=== PATIENT | male | born 1970 | race African-American/Black ===

== ENCOUNTER 2019-08-26 10:28 | Observation (INO) | payer BC ==
--- OUTSIDE RECORDS SUMMARY | 2019-08-26 10:30 | XMS REPORT ---
:1970 [facility] Organization [facility] Address [address] [place] [address] [place] [id number] Care Team Providers Name Role Phone Unavailable Unavailable Unavailable Problems This patient has no known problems. Allergies, Adverse Reactions, Alerts This patient has no known allergies or adverse reactions. Medications This patient has no known medications.
[2019-08-26 11:54] LABS: Absolute Lymphocytes (CBC) 1.7 K/uL (0.7-4.9); Basophils % 0.7 % (0-1.3); Hematocrit 25.8 % (39.6-49.0); Lymphocytes % 9.4 % (15.3-44.8); MPV 7.1 fL (7.6-11.3); RBC Red Blood Cell Count 3.71 M/uL (4.33-5.43)
[2019-08-26 12:04] LABS: Protime INR 1.16
--- NOTE | 2019-08-26 12:05 | RAD REPORT ---
EXAM DESCRIPTION: Olga Lidia Single View08/26/2019 11:55 am CLINICAL HISTORY: Cough COMPARISON: July 30, 2019 FINDINGS: The right hemithorax is hazy. Most if not all this represents a combination of right pleu ral based masses and pleural effusion. Left lung appears clear of acute infiltrate. Heart is normal size. Mediastinal and right hilar lympha denopathy is present
[2019-08-26] MEDS ORDERED: NA CHLORIDE 0.9% 1,000 ML ONE ×2 (12:11→18:24)
[2019-08-26 12:20] LABS: ALT/SGPT 18 U/L (12-78); AST/SGOT 26 U/L (15-37); Albumin 2.9 g/dL (3.4-5.0); Alkaline Phosphatase 152 U/L (45-117); BUN Blood Urea Nitrogen 18 mg/dL (7-18); Bicarbonate 27 mmol/L (21-32); Bilirubin Direct < 0.1 mg/dL (0-0.2); Bilirubin Total 0.1 mg/dL (0.2-1.0); Glucose Level 87 mg/dL (74-106); Magnesium 2.3 mg/dL (1.8-2.4); NT PRO-BNP 65 pg/mL (<125); Potassium 3.9 mmol/L (3.5-5.1); Protein, Total 8.3 g/dL (6.4-8.2); Sodium Level 137 mmol/L (136-145); Troponin (Emerg Dept Use Only) < 0.02 ng/mL (0.0-0.045)
--- NOTE | 2019-08-26 12:47 | EKG ---
Test Date: 2019-08-26 Test Time: 11:20:47 Senior Loan Processor: ANAMARIA MEASUREMENT RESULTS: Intervals: Rate: 110 RI: 148 QRSD: 76 QT: 316 QTc: 427 [place]: P: 47 RI: 148 QRS: 39 T: 42 INTERPRETIVE STATEMENTS: Sinus tachycardia Otherwise normal ECG No previous ECG available for comparison Electronically Signed On 08-26-19 12:46:53 [employer]IST BL[employer] by Km Love
[2019-08-26] MEDS ORDERED: PIPER/TAZO/NS 3.375gm 3.375 GM/100 ML BAG ONE (12:50)
--- NOTE | 2019-08-26 13:10 | RAD REPORT ---
EXAM DESCRIPTION: RAD - Pelvis - 08/26/2019 1:04 pm CLINICAL HISTORY: Left hip pain FINDINGS: No fracture or dislocation is seen. Mild superolateral hip joint space narrowing with subchondral sclerosis.
--- NOTE | 2019-08-26 13:10 | RAD REPORT ---
EXAM DESCRIPTION: RAD - Hip Left 2 View - 08/26/2019 1:04 pm CLINICAL HISTORY: Left hip pain FINDINGS: No fracture or dislocation is seen. Mild superolateral hip joint space narrowing with subchondral sclerosis
--- NOTE | 2019-08-26 13:11 | RAD REPORT ---
EXAM DESCRIPTION: RAD - Femur Left - 08/26/2019 1:04 pm CLINICAL HISTORY: Left leg pain FINDINGS: No fracture seen. No bony lesion noted
[2019-08-26 13:22] LABS: Anisocytosis 1+; Blood Morphology Comment NOTED (NOT SEEN); Platelet Estimate INCR; Urine White Blood Cell Casts OK
--- NOTE | 2019-08-26 13:28 | ER ---
Nurse's Notes 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 Transition of care: patient was not received from another setting of care. Onset of symptoms was August 26, 2019. Risk Assessment: Do you want to hurt yourself or someone else? Patient reports no desire to harm self or others. Initial Sepsis Screen: Does the patient meet any 2 criteria? No. Patient's initial sepsis screen is negative. Does the patient have a suspected source of infection? No. Patient's initial sepsis screen is negative. Care prior to arrival: None. 10:35 Method Of Arrival: Ambulatory iw 10:35 Acuity: TADEO 3 iw Historical: - Allergies: 10:38 NKA; iw - Home Meds: 10:38 None [Active]; iw - PMHx: 10:38 throat cancer; lung cancer; iw - PSHx: 10:38 left leg; iw - Immunization history:: Adult Immunizations. - Coronavirus screen:: The patient has NOT traveled to [place], [place], or [place] in the past 14 days. Proceed with normal triage process as indicated. - Social history:: Smoking status: Patient reports the use of cigarette tobacco products, smokes one pack cigarettes per day. - Family history:: not pertinent. - Ebola Screening: : Patient negative for fever greater than or equal to 101.5 degrees Fahrenheit, and additional compatible Ebola Virus Disease symptoms Patient denies exposure to infectious person Patient denies travel to an Ebola-affected area in the 21 days before illness onset No symptoms or risks identified at this time. Screenin:31 Abuse screen: Denies threats or abuse. Nutritional screening: No deficits noted. Tuberculosis screening: No symptoms or risk factors identified. Fall Risk None identified. Assessment: 12:21 General: Appears in no apparent distress. comfortable, Behavior is calm, cooperative. Pain: Complains of pain in left inguinal area Pain does not radiate. Pain currently is 3 out of 10 on a pain scale. Quality of pain is described as throbbing, Pain began 1 day ago. Alleviated by medications, rest, Aggravated by repositioning. Neuro: Level of Consciousness is awake, alert, obeys commands, Oriented to person, place, time, situation, Solution Mixer are equal bilaterally Moves all extremities. Full function Speech is normal. Cardiovascular: Heart tones S1 S2 present Capillary refill < 3 seconds Patient's skin is warm and dry. Pulses are 2+ in right radial artery, right dorsalis pedis artery, left radial artery and left dorsalis pedis artery. Respiratory: Airway is patent Breath sounds with wheezes in right posterior upper lobe the patient has mild shortness of breath. GI: Last BM was August 25, 2019. Bowel sounds present X 4 quads. Abd is soft and non tender Patient currently denies nausea. : No signs and/or symptoms were reported regarding the genitourinary system. Derm: Skin is dry, Skin is pink, warm \T\ dry. Skin temperature is warm. Musculoskeletal: No deficits noted. 13:45 Reassessment: Patient appears in no apparent distress at this time. Pt lying in bed ah resting with eyes closed and resp cedrick and unlabored. Brought Pt a sandwich and chips. No other needs voiced at this time. 14:22 Reassessment: Spoke with Dr Michele regarding admission orders, stated she is in sv putting them at this time. 17:36 Reassessment: Patient appears in no apparent distress at this time. 17:36 Reassessment: Tray delievered to patient. No needs voiced at this time. 19:50 Reassessment: Report called to YE christopher. Patient to be taken to room 216. ao Vital Signs: 10:38 BP 120 / 85; Pulse 123; Resp 16 S; Temp 97.3; Pulse Ox 100% on R/A; Weight 63.96 kg; iw Height 6 ft. 0 in. (182.88 cm); Pain 10/10; 12:26 BP 118 / 94; Pulse 104; Resp 18; Pulse Ox 100% on R/A; sv 14:52 BP 116 / 73; Pulse 108; Resp 16; Pulse Ox 100% ; sv 16:02 BP 107 / 70; Pulse 106; Resp 16; Pulse Ox 99% ; sv 16:45 BP 95 / 70; Pulse 103; Resp 16; Pulse Ox 99% ; sv 17:30 BP 104 / 72; Pulse 101; Pulse Ox 98% ; sv 19:00 BP 109 / 84; Pulse 108; Resp 18; Pulse Ox 99% on R/A; rv 20:00 BP 107 / 76; Pulse 108; Resp 18; Pulse Ox 99% on R/A; rv 20:32 BP 113 / 81; Pulse 105; Resp 16; Pulse Ox 99% on R/A; rv 10:38 Body Mass Index 19.12 (63.96 kg, 182.88 cm) iw ED Course: 10:31 Patient arrived in ED. as 10:37 Triage completed. iw 10:38 Arm band placed on. iw 10:40 Bry Xiao MD is Attending Physician. janelle 11:30 EKG done, by water resources technical officer. reviewed by Bry Xiao MD. at1 11:45 Patient has correct armband on for positive identification. Bed in low position. Call light in reach. Pulse ox on. NIBP on. Door closed. Warm blanket given. Head of bed elevated. 11:50 First set of blood cultures drawn by me. Inserted saline lock: 22 gauge in left sv forearm, using aseptic technique. ,using aseptic technique. diffusics Blood collected. Flushed left forearm with 5 ml normal saline. 11:53 XRAY Chest (1 view) In Process Unspecified. EDMS 11:53 Missed attempt(s): 22 gauge in right forearm. Bleeding controlled, band aid applied, catheter tip intact. 12:01 Second set of blood cultures drawn by me. 12:07 Sendy Nicole, RN is Primary Nurse. sv 12:35 ED physician to see patient. ah 12:49 Patient moved to radiology. sv 13:02 Pelvis XRAY In Process Unspecified. EDMS 13:02 Hip Left 2 View XRAY In Process Unspecified. EDMS 13:02 Femur Left XRAY In Process Unspecified. EDMS 13:15 T\T\S collected, blood band applied to patient. sv 13:24 Cesar Saldana MD is Hospitalizing Provider. janelle 14:15 No provider procedures requiring assistance completed. ah 14:52 Awaiting bed assignment. sv 16:30 Awaiting bed assignment. ah 17:37 Awaiting bed assignment. 19:08 Primary Nurse role handed off by Sendy Nicole RN 19:08 Report given to Jelani RN and Pino RN. sv 20:31 Khris Damian, RN is Primary Nurse. rv 20:32 Patient admitted, IV remains in place. ao Administered Medications: 12:15 Drug: NS 0.9% 1000 ml Route: IV; Rate: 1 bolus; Site: left forearm; ah 15:26 Follow up: Response: No adverse reaction; IV Status: Completed infusion; IV Intake: ah 1000ml 13:31 Drug: Zosyn 3.375 grams Route: IVPB; Infused Over: 60 mins; Site: left forearm; sv 15:24 Follow up: Response: No adverse reaction; IV Status: Completed infusion; IV Intake: ah 100ml Intake: 15:24 IV: 100ml; Total: 100ml. 15:26 IV: 1000ml; Total: 1100ml. Outcome: 13:27 Decision to Hospitalize by Provider. janelle 18:28 Admitted to ER Hold. Please see [facility] for further documentation. 18:28 Condition: stable 18:28 Instructed on the need for admit. 20:32 Patient left the ED. ao Signatures: Dispatcher [employer] EDMS Sendy Nicole, RN Bry Patterson MD MD cha Martinez, Amelia as Williams, Irene, YE BELCHER Katarzyna Malloy, quiller hand EKG Tat1 Jelani Rubio RN RN ao Vicente, Ronaldo, RN RN rv Harris, Amy RN YE
--- NOTE | 2019-08-26 13:28 | EDPHYS ---
Physician Documentation [facility] Name: Artur Kimble Age: 49 yrs Sex: Male : 1970 Arrival Date: 08/26/2019 Time: 10:31 Bed 7 Private MD: DERICK Physician Bry Xiao HPI: 08/26 12:40 This 49 yrs old Black Male presents to ER via Ambulatory with complaints of Abnormal janelle Lab Results, Leg Pain. 12:40 The patient presents with decreased range of motion, pain, that is acute. The janelle complaints affect the left hip, left gluteal fold and left upper thigh. Context: The problem was sustained at an unknown site. Onset: The symptoms/episode began/occurred 1 week(s) ago. Modifying factors: The symptoms are alleviated by elevating leg, remaining still, the symptoms are aggravated by movement, weight bearing. Associated signs and symptoms: The patient has no apparent associated signs or symptoms. Treatment prior to arrival includes: no previous treatment. Severity of symptoms: At their worst the symptoms were moderate, in the emergency department the symptoms are unchanged. The patient has not experienced similar symptoms in the past. Historical: - Allergies: 10:38 NKA; iw - Home Meds: 10:38 None [Active]; iw - PMHx: 10:38 throat cancer; lung cancer; iw - PSHx: 10:38 left leg; iw - Immunization history:: Adult Immunizations. - Coronavirus screen:: The patient has NOT traveled to [place], [place], or [place] in the past 14 days. Proceed with normal triage process as indicated. - Social history:: Smoking status: Patient reports the use of cigarette tobacco products, smokes one pack cigarettes per day. - Family history:: not pertinent. - Ebola Screening: : Patient negative for fever greater than or equal to 101.5 degrees Fahrenheit, and additional compatible Ebola Virus Disease symptoms Patient denies exposure to infectious person Patient denies travel to an Ebola-affected area in the 21 days before illness onset No symptoms or risks identified at this time. ROS: 12:40 Constitutional: Negative for fever, chills, and weight loss, Eyes: Negative for injury, janelle pain, redness, and discharge, ENT: Negative for injury, pain, and discharge, Neck: Negative for injury, pain, and swelling, Cardiovascular: Negative for chest pain, palpitations, and edema, Abdomen/GI: Negative for abdominal pain, nausea, vomiting, diarrhea, and constipation, Back: Negative for injury and pain, : Negative for injury, bleeding, discharge, and swelling, Skin: Negative for injury, rash, and discoloration, Neuro: Negative for headache, weakness, numbness, tingling, and seizure, Psych: Negative for depression, anxiety, suicide ideation, homicidal ideation, and hallucinations, Allergy/Immunology: Negative for hives, rash, and allergies, Endocrine: Negative for neck swelling, polydipsia, polyuria, polyphagia, and marked weight changes, Hematologic/Lymphatic: Negative for swollen nodes, abnormal bleeding, and unusual bruising. 12:40 Respiratory: Positive for cough. 12:40 MS/extremity: Positive for decreased range of motion, pain, tenderness, of the left femoral area, left hip and left leg. Exam: 12:40 Constitutional: This is a well developed, well nourished patient who is awake, alert, janelle and in no acute distress. Head/Face: Normocephalic, atraumatic. Eyes: Pupils equal round and reactive to light, extra-ocular motions intact. Lids and lashes normal. Conjunctiva and sclera are non-icteric and not injected. Cornea within normal limits. Periorbital areas with no swelling, redness, or edema. ENT: Nares patent. No nasal discharge, no septal abnormalities noted. Tympanic membranes are normal and external auditory canals are clear. Oropharynx with no redness, swelling, or masses, exudates, or evidence of obstruction, uvula midline. Mucous membranes moist. Neck: Trachea midline, no thyromegaly or masses palpated, and no cervical lymphadenopathy. Supple, full range of motion without nuchal rigidity, or vertebral point tenderness. No Meningismus. Chest/axilla: Normal chest wall appearance and motion. Nontender with no deformity. No lesions are appreciated. Vital Signs: 10:38 BP 120 / 85; Pulse 123; Resp 16 S; Temp 97.3; Pulse Ox 100% on R/A; Weight 63.96 kg; iw Height 6 ft. 0 in. (182.88 cm); Pain 10/10; 12:26 BP 118 / 94; Pulse 104; Resp 18; Pulse Ox 100% on R/A; sv 14:52 BP 116 / 73; Pulse 108; Resp 16; Pulse Ox 100% ; sv 16:02 BP 107 / 70; Pulse 106; Resp 16; Pulse Ox 99% ; sv 16:45 BP 95 / 70; Pulse 103; Resp 16; Pulse Ox 99% ; sv 17:30 BP 104 / 72; Pulse 101; Pulse Ox 98% ; sv 19:00 BP 109 / 84; Pulse 108; Resp 18; Pulse Ox 99% on R/A; rv 20:00 BP 107 / 76; Pulse 108; Resp 18; Pulse Ox 99% on R/A; rv 20:32 BP 113 / 81; Pulse 105; Resp 16; Pulse Ox 99% on R/A; rv 10:38 Body Mass Index 19.12 (63.96 kg, 182.88 cm) iw MDM: 10:40 Patient medically screened. [facility] 08/26 11:09 Order name: Basic Metabolic Panel [facility] 08/26 11:09 Order name: CBC with Diff; Complete Time: 13:23 [facility] 08/26 11:09 Order name: LFT's [facility] 08/26 11:09 Order name: Magnesium [facility] 08/26 11:09 Order name: NT PRO-BNP [facility] 08/26 11:09 Order name: PT-INR; Complete Time: 12:38 [facility] 08/26 11:09 Order name: Troponin (emerg Dept Use Only) [facility] 08/26 11:09 Order name: Blood Culture Adult (2) [facility] 08/26 11:09 Order name: Procalcitonin; Complete Time: 12:38 [facility] 08/26 11:09 Order name: Lactate; Complete Time: 12:38 [facility] 08/26 11:09 Order name: Urine Culture [facility] 08/26 12:39 Order name: Type And Screen [facility] 08/26 13:22 Order name: CBC Smear Scan; Complete Time: 13:23 [facility] 08/26 14:16 Order name: ABO/RH no charge [facility] 08/26 11:09 Order name: XRAY Chest (1 view); Complete Time: 12:38 [facility] 08/26 12:38 Order name: Pelvis XRAY; Complete Time: 13:23 [facility] 08/26 14:28 Order name: Lipid Profile [facility] 08/26 14:28 Order name: Lipid Profile [facility] 08/26 14:28 Order name: Urinalysis [facility] 08/26 14:40 Order name: Basic Metabolic Panel [facility] 08/26 14:40 Order name: Basic Metabolic Panel [facility] 08/26 14:40 Order name: Basic Metabolic Panel [facility] 08/26 14:40 Order name: Basic Metabolic Panel [facility] 08/26 14:40 Order name: CBC with Automated Diff [facility] 08/26 14:40 Order name: CBC with Automated Diff [facility] 08/26 14:40 Order name: CBC with Automated Diff [facility] 08/26 14:41 Order name: CBC with Automated Diff EDMS 08/26 14:41 Order name: CBC with Automated Diff [facility] 08/26 11:09 Order name: EKG; Complete Time: 11:10 [facility] 08/26 11:09 Order name: EKG - Nurse/Tech; Complete Time: 12:09 [facility] 08/26 11:09 Order name: IV Saline Lock; Complete Time: 12:09 [facility] 08/26 11:09 Order name: Labs collected and sent; Complete Time: 12:09 [facility] 08/26 11:09 Order name: O2 Per Protocol; Complete Time: 12:09 [facility] 08/26 11:09 Order name: O2 Sat Monitoring; Complete Time: 12:09 [facility] 08/26 12:38 Order name: Hip Left 2 View XRAY; Complete Time: 13:23 [facility] 08/26 12:38 Order name: Femur Left XRAY; Complete Time: 13:23 [facility] 08/26 14:28 Order name: CONS Pharmacy Consult [facility] 08/26 14:28 Order name: Regular EDKY Administered Medications: 12:15 Drug: NS 0.9% 1000 ml Route: IV; Rate: 1 bolus; Site: left forearm; ah 15:26 Follow up: Response: No adverse reaction; IV Status: Completed infusion; IV Intake: ah 1000ml 13:31 Drug: Zosyn 3.375 grams Route: IVPB; Infused Over: 60 mins; Site: left forearm; sv 15:24 Follow up: Response: No adverse reaction; IV Status: Completed infusion; IV Intake: ah 100ml Disposition: 08/26/19 13:27 Hospitalization ordered by Cesar Saldana for Inpatient Admission. Preliminary diagnosis are Elevated white blood cell count, Anemia, unspecified, Carcinoma in situ of right bronchus and lung - pneumonitis, Tobacco abuse counseling, Tobacco use. - Bed requested for Telemetry/MedSurg (Inpatient). - Status is Inpatient Admission. ao - Condition is Fair. - Problem is new. - Symptoms have improved. UTI on Admission? No Signatures: Dispatcher [employer] EDKY Purvi Calix Sendy Nicole, RN RN Bry Prieto MD MD cha Williams, Irene, Jelani Pablo RN, RN Elissa Mendez RN YE Corrections: (The following items were deleted from the chart) 14:40 14:28 CBC with Automated Diff ordered. EDKY EDMS 14:40 14:28 Comprehensive Metabolic Panel ordered. EDKY EDMS 17:56 13:27 Hospitalization Ordered by Cesar Saldana MD for Inpatient Admission. Preliminary bd diagnosis is Elevated white blood cell count; Anemia, unspecified; Carcinoma in situ of right bronchus and lung - pneumonitis; Tobacco abuse counseling; Tobacco use. Bed requested for Telemetry/MedSurg (Inpatient). Status is Inpatient Admission. Condition is Fair. Problem is new. Symptoms have improved. UTI on Admission? No. janelle 18:48 17:56 08/26/2019 13:27 Hospitalization Ordered by Cesar Saldana MD for Inpatient bd Admission. Preliminary diagnosis is Elevated white blood cell count; Anemia, unspecified; Carcinoma in situ of right bronchus and lung - pneumonitis; Tobacco abuse counseling; Tobacco use. Bed requested for [email or web address] ER HOLD. Status is Inpatient Admission. Condition is Fair. Problem is new. Symptoms have improved. UTI on Admission? No. bd 20:32 18:48 08/26/2019 13:27 Hospitalization Ordered by Cesar Saldana MD for Inpatient ao Admission. Preliminary diagnosis is Elevated white blood cell count; Anemia, unspecified; Carcinoma in situ of right bronchus and lung - pneumonitis; Tobacco abuse counseling; Tobacco use. Bed requested for Telemetry/MedSurg (Inpatient). Status is Inpatient Admission. Condition is Fair. Problem is new. Symptoms have improved. UTI on Admission? No. bd
--- NOTE | 2019-08-26 14:19 | P.HP ---
Certification for Inpatient Patient admitted to: Observation Practitioner: I am a practitioner with admitting privileges, knowledge of patient current condition, hospital course, and medical plan of care. Services: Services provided to patient in accordance with Admission requirements found in Title 42 Section 412.3 of the Code of Federal Regulations Patient History Date of Service: 08/26/19 Reason for admission: Referred for leukocytosis History of Present Illness: Mr. Kimble is 49 y/o old male with a history of thyroid cancer status post chemoradiation in 2017. Patient was following up with his oncologist, was found to have R apical lung mass suggestive of malignancy. He was planned for a placement of port a cath on Saturday08/28/19 however blood work showed leukocytosis. Patient was at his oncologist's office today and referred to the emergency room due to leukocytosis to rule out acute infection. His only complaint is urinary urgency that been ongoing for 2-3 months. He denies any fevers , chills, cough, night sweats, unintentional weight loss or GI symptoms. Patient also has a left hip pain that started 1 week ago. He denies any trauma to the area prior to onset of pain. Allergies No Known Allergies Allergy (Verified 08/25/19 09:21) Home Medications: Ibuprofen [Advil] 200 mg PO PRN PRN 08/25/19 - Past Medical/Surgical History -: Throat cancer -: Lung ca -: LLE Ortho - Family History Family History: Reviewed- Non-Contributory - Social History Smoking Status: Current every day smoker Alcohol use: No CD- Drugs: No Review of Systems 10-point ROS is otherwise unremarkable Genitourinary: Urgency Musculoskeletal: Other (L hip pain) Physical Examination - Physical Exam General: Alert, In no apparent distress HEENT: Atraumatic, PERRLA, Mucous membr. moist/pink, EOMI, Sclerae nonicteric Neck: Supple, 2+ carotid pulse no bruit, No LAD, Without JVD or thyroid abnormality Respiratory: Clear to auscultation bilaterally, Normal air movement Cardiovascular: Regular rate/rhythm, Normal S1 S2 Gastrointestinal: Normal bowel sounds, No tenderness Musculoskeletal: No tenderness Integumentary: No rashes Neurological: Normal gait, Normal speech, Normal strength at 5/5 x4 extr, Normal tone, Normal affect Lymphatics: No axilla or inguinal lymphadenopathy - Studies Laboratory Data (last 24 hrs) 08/26/19 11:40: PT 13.6 H, INR 1.16 08/26/19 11:40: WBC 17.6 H, Hgb 8.2 L, Hct 25.8 L, Plt Count 756 H 08/26/19 11:40: Sodium 137, Potassium 3.9, BUN 18, Creatinine 0.80, Glucose 87, Magnesium 2.3, Total Bilirubin 0.1 L, AST 26, ALT 18, Alkaline Phosphatase 152 H Assessment and Plan - Plan Mr Kimble is 49y/o old male presenting with leukocytosis. #Leukocytosis-patient with elevated procalcitonin. Urinary symptoms with urgency only. Patient is afebrile. -urinalysis is pending. Rule out other source of infection including pneumonia especially postobstructive. -blood and urine cultures. -initiate ceftriaxone empirically. #Anemia-H and H is low, no overt bleeding noted. -microcytic anemia. Check iron studies. -follow up H and H closely and transfuse if less than 7. #Thrombocytosis-possibly reactive. -initiate patient on aspirin therapy. #Lung malignancy-per patient, this is stage IV; however unclear of type and Metastasis. -port a cath planned for08/28/2019. -will consult general surgeon on board. -oncology care decided to patient's primary oncologist. #Tobacco use-smoking cessation strongly advised. DVT ppx- lovenox. patient is full code. Dispo- obs admission. Discharge Plan: Home Plan to discharge in: 24 Hours - Advance Directives Does patient have a Living Will: No Does patient have a Durable POA for Healthcare: No
[2019-08-26] MEDS ORDERED: ONDANSETRON 4 MG/2 ML VIAL IV PRN (14:24)
[2019-08-26] MEDS ORDERED: CEFTRIAXONE/SWI 1gm 1 GM/10 ML SYR IVP SCH (15:00)
[2019-08-26] MEDS: NA CHLORIDE 0.9% 1,000 ML IV SCH ×2 (17:54→20:55)
[2019-08-26 18:03] VITALS: BMI 18.8
[2019-08-26] MEDS ORDERED: INFLUENZA VACCINE (for 3y+) 0.5 ML DOSE IMVAC ONE (20:00)
[2019-08-26] MEDS: ENOXAPARIN 40 MG/0.4 ML SQ SCH (20:55)
[2019-08-26 22:13] LABS: Urine Appearance CLEAR; Urine Bilirubin NEGATIVE (NEG); Urine Blood NEGATIVE (NEG); Urine Color YELLOW; Urine Glucose NEGATIVE (NEG); Urine Protein NEGATIVE (NEG); Urine Specific Gravity 1.015 (1.005-1.030)
[2019-08-26 22:29] LABS: Urine Microscopic Reflex NO UMIC
[2019-08-26] MEDS: IBUPROFEN 200 MG TAB PO PRN (23:05)
[2019-08-27] MEDS: NA CHLORIDE 0.9% 1,000 ML IV SCH ×3 (07:14→20:45)
[2019-08-27] MEDS: ASPIRIN EC 81 MG TAB PO SCH (09:31)
[2019-08-27] MEDS: CEFTRIAXONE/SWI 1gm 1 GM/10 ML SYR IVP SCH (09:31)
[2019-08-27 10:19] LABS: Absolute Lymphocytes (CBC) 1.5 K/uL (0.7-4.9); Basophils % 0.7 % (0-1.3); Hematocrit 26.4 % (39.6-49.0); Lymphocytes % 9.9 % (15.3-44.8); RBC Red Blood Cell Count 3.76 M/uL (4.33-5.43)
[2019-08-27 10:41] LABS: ALT/SGPT 13 U/L (12-78); AST/SGOT 18 U/L (15-37); Albumin 2.5 g/dL (3.4-5.0); Alkaline Phosphatase 139 U/L (45-117); BUN Blood Urea Nitrogen 13 mg/dL (7-18); Bicarbonate 29 mmol/L (21-32); Bilirubin Total 0.1 mg/dL (0.2-1.0); Glucose Level 143 mg/dL (74-106); Protein, Total 7.3 g/dL (6.4-8.2); Sodium Level 140 mmol/L (136-145)
[2019-08-27 12:30] LABS: Anisocytosis 2+; Blood Morphology Comment NOTED (NOT SEEN); Platelet Estimate INCR; Target Cells 1+
[2019-08-27 12:31] LABS: Toxic Granulation 1+
--- NOTE | 2019-08-27 13:24 | P.PN ---
Subjective Date of Service: 08/27/19 Chief Complaint: Referred for leukocytosis Subjective: No new changes Review of Systems 10-point ROS is otherwise unremarkable Physical Examination - Vital Signs Temperature: 97 F Blood Pressure: 123/72 Pulse: 94 Respirations: 18 Pulse Ox (%): 98 - Physical Exam General: Alert, In no apparent distress HEENT: Atraumatic, PERRLA, EOMI Neck: Supple, JVD not distended Respiratory: Clear to auscultation bilaterally, Normal air movement Cardiovascular: Regular rate/rhythm, Normal S1 S2 Gastrointestinal: Normal bowel sounds, No tenderness Musculoskeletal: No tenderness Integumentary: No rashes Neurological: Normal speech, Normal tone, Normal affect Lymphatics: No axilla or inguinal lymphadenopathy - Studies Laboratory Data (last 24 hrs) 08/26/19 11:40: Sodium 137, Potassium 3.9, BUN 18, Creatinine 0.80, Glucose 87, Magnesium 2.3, Total Bilirubin 0.1 L, AST 26, ALT 18, Alkaline Phosphatase 152 H Microbiology Data (last 24 hrs): 08/26/19 11:40 Blood - Blood Anaerobic Blood Culture - Final Assessment And Plan - Plan Mr Kimble is 49y/o old male presenting with leukocytosis. #Leukocytosis-patient with elevated procalcitonin. UA is negative. Patient is afebrile. - Rule out other source of infection including pneumonia especially postobstructive. -blood and urine cultures, no growth thus far -Ceftriaxone empirically & leukocytosis is improved. #Anemia-H and H is low, no overt bleeding noted. -microcytic anemia. MEENA. FOBT. -follow up H and H closely and transfuse if less than 7. #Thrombocytosis-possibly reactive. -initiate patient on aspirin therapy. -improving #Lung malignancy-per patient, this is stage IV; however unclear of type and Metastasis. -port a cath planned for 08/28/2019. npo past midnight - general surgeon on board. -oncology care defer to patient's primary oncologist. #Tobacco use-smoking cessation strongly advised. DVT ppx- lovenox. patient is full code. Dispo- obs admission.
[2019-08-27] MEDS ORDERED: CEFAZOLIN/SWI 1gm 1 GM/10 ML SYR IV SCH (15:00)
[2019-08-27] MEDS: ENOXAPARIN 40 MG/0.4 ML SQ SCH (16:01)
[2019-08-27] MEDS: IBUPROFEN 200 MG TAB PO PRN (16:12)
[2019-08-27] MEDS: ENSURE ENLIVE 237 ML CAN PO SCH (20:43)
[2019-08-28 04:58] LABS: Absolute Lymphocytes (CBC) 1.8 K/uL (0.7-4.9); Basophils % 0.3 % (0-1.3); Lymphocytes % 11.2 % (15.3-44.8); MPV 7.2 fL (7.6-11.3); RBC Red Blood Cell Count 3.85 M/uL (4.33-5.43)
[2019-08-28 05:16] LABS: BUN Blood Urea Nitrogen 12 mg/dL (7-18); Bicarbonate 30 mmol/L (21-32); Glucose Level 113 mg/dL (74-106); Magnesium 2.1 mg/dL (1.8-2.4); Sodium Level 140 mmol/L (136-145); Transferrin 160 mg/dL (200-360)
[2019-08-28] MEDS ORDERED: CEFAZOLIN SODIUM 1 GM/VIAL ONE (08:34)
[2019-08-28] MEDS: CEFTRIAXONE/SWI 1gm 1 GM/10 ML SYR IVP SCH (08:39)
[2019-08-28] MEDS: ENSURE ENLIVE 237 ML CAN PO SCH ×2 (09:00→21:00)
[2019-08-28] MEDS: ASPIRIN EC 81 MG TAB PO SCH (09:00)
[2019-08-28] MEDS: NA CHLORIDE 0.9% 1,000 ML IV SCH ×3 (09:54→23:14)
[2019-08-28] MEDS ORDERED: propofoL 200 MG/20 ML VIAL IV ONE ×2 (10:14→10:40)
[2019-08-28] MEDS ORDERED: FENTANYL CITR 100 MCG/2 ML ONE ×2 (10:16→10:39)
[2019-08-28] MEDS ORDERED: LIDOCAINE 2% MPF 5 ML VIAL ONE (10:16)
[2019-08-28] MEDS ORDERED: MIDAZOLAM HCL 2 MG/2 ML INJ ONE (10:40)
[2019-08-28] MEDS ORDERED: LIDOCAINE 1% 20 ML MDV ONE (10:55)
[2019-08-28] MEDS ORDERED: HEPARIN 5000 UNIT/ML 1 ML VIAL ONE (10:56)
[2019-08-28] MEDS ORDERED: NS 0.9% VIAL 20 ML ONE (10:56)
[2019-08-28] MEDS ORDERED: NA CHLORIDE 0.9% 1,000 ML ONE (11:02)
[2019-08-28] MEDS ORDERED: DIPHENHYDRAMINE 50 MG/ML VIAL ONE (11:16)
--- NOTE | 2019-08-28 11:38 | P.OP ---
Preoperative diagnosis: Lung Cancer Postoperative diagnosis: same Primary procedure: RIJ Portacath, Fluoroscopy Anesthesia: General Estimated blood loss: min Specimen: none Findings: Normal Anatomy Complications: None Transferred to: Recovery Room Condition: Good
[2019-08-28] MEDS ORDERED: CODEINE 30MG/APAP 300MG TAB PO PRN (11:40)
[2019-08-28 12:24] VITALS: O2SAT 95
--- NOTE | 2019-08-28 12:30 | RAD REPORT ---
EXAM DESCRIPTION: RAD - Chest Single View - 08/28/2019 12:19 pm CLINICAL HISTORY: S/P Portacath COMPARISON: Chest Single View dated 08/26/2019 TECHNIQUE: AP portable chest image was obtained 08/28/2019 12:19 pm . FINDINGS: Right-sided Port-A-Cath is in place via right jugular approach. Tip is in the distal SVC. No pneumothorax identified. Extensive right lung parenchymal opacification accentuated by shallow inspiration. This is similar to comparison. Heart size is stable. No pleural effusion. IMPRESSION: Right-sided Port-A-Cath in good position. Tip is in the distal SVC. No pneumothorax.
--- NOTE | 2019-08-28 12:30 | P.PN ---
Subjective Date of Service: 08/28/19 Chief Complaint: Referred for leukocytosis Subjective: No new changes Review of Systems 10-point ROS is otherwise unremarkable Physical Examination - Vital Signs Temperature: 98.0 F Blood Pressure: 121/81 Pulse: 96 Respirations: 18 Pulse Ox (%): 98 - Physical Exam General: Alert, In no apparent distress HEENT: Atraumatic, PERRLA, EOMI Neck: Supple, JVD not distended Respiratory: Clear to auscultation bilaterally, Normal air movement Cardiovascular: Regular rate/rhythm, Normal S1 S2 Gastrointestinal: Normal bowel sounds, No tenderness Musculoskeletal: No tenderness Integumentary: No rashes Neurological: Normal speech, Normal tone, Normal affect Lymphatics: No axilla or inguinal lymphadenopathy - Studies Microbiology Data (last 24 hrs): 08/26/19 11:40 Blood - Blood Anaerobic Blood Culture - Final Medications List Reviewed: Yes Assessment And Plan - Plan Mr Kmible is 49y/o old male presenting with leukocytosis. #Leukocytosis-patient with elevated procalcitonin. UA is negative. Patient is afebrile. - Rule out other source of infection including pneumonia especially postobstructive. -blood and urine cultures, no growth thus far -Ceftriaxone empirically & leukocytosis remains. May not be related to acute infection as he has evidence of blood dyscrasias. -consult hem/onc #Anemia-H and H is low, no overt bleeding noted. -microcytic anemia. MEENA. FOBT pending. -follow up H and H closely and transfuse if less than 7. #Thrombocytosis-possibly reactive. -initiated patient on aspirin therapy. -improving #Lung malignancy-per patient, this is stage IV; however unclear of type and Metastasis. -port a cath placed today. -general surgeon on board. -oncology care defer to patient's primary oncologist. #Tobacco use-smoking cessation strongly advised. DVT ppx- lovenox. patient is full code. Dispo- obs admission.
--- NOTE | 2019-08-28 13:48 | PREOPCON ---
Date of Consultation: 08/27/2019 Reason For Consultation: Patient needs Port-A-Cath. History Of Present Illness: Patient is a 49-year-old gentleman with stage IV lung cancer and needed chemotherapy and he was scheduled for a Port-A-Cath placement for my office. However, on preop javon p, his white count was elevated to 20,000 and he had not received any medication to account for that. He was admitted through the emergency room on with elevated white count and he was complaining of some left hip pain that started a week ago. No nausea or vomiting. No dysuria. No fever or chi lls. No sore throat, runny nose, cough, headaches, or dizziness. Review of Systems: Otherwise unremarkable. Past Medical History: Significant for lung cancer, throat cancer. Past Surgical History: Colon surgery and leg surgery. Medications: Reviewed. Social History: He does smoke. He has been counseled. Physical Examination: Vital Signs: Stable. Afebrile. General: He is awake, alert, oriented x3. Head and Neck: Cranial nerves 2 through 12 grossly within normal limits. No neck masses. No JVD. Throat clear. Neck supple. Chest: Clear. Heart: S1 and S2. Abdomen: Soft. Extremities: Neurovascularly intact. Neurologic: Nonfocal. Laboratory Data: White count today is 15.7. Left shift is improving. His INR is 1.16. His analytical chemist ry shows normal procalcitonin. Normal lactic acid. His blood cultures are negative. His urine cult ure is negative. Imaging: His x-ray and pelvis x-ray reviewed. The pelvis shows subchondral sclerosis. No fracture or dislocation. The hip x-ray shows the same thing. The femur x-ray shows no fracture and no bony lesion noted. The chest x-ray, lungs appear clear infiltrate on the left side. There is mediastinal and right brisa r lymphadenopathy is present. The right hemithorax is hazy. Most if not all of this represents a co mbination of right pleural-based masses and pleural effusion. Assessment And Plan: A 49-year-old gentleman with stage IV lung cancer with leukocytosis likely the source is right lung with pleural effusion and he is not septic. His white count is improving. All his cultures are negative so far. Therefore, we will proceed with placement of a Port-A-Cath as sche duled. Patient understands risks, benefits, and alternatives and agrees to procedure. /MODIván Voice ID: [id number] Report ID: [id number]
--- NOTE | 2019-08-28 14:56 | RAD REPORT ---
EXAM DESCRIPTION: RAD - Fluoroscopy <1 Hour - 08/28/2019 2:48 pm FINDINGS: There were 3 portable C-arm views obtained during fluoroscopic assisted placement of a Por t-A-Cath. No suspicious or unexpected findings. Fluoro time was 0.5 minutes.
[2019-08-28] MEDS: ENOXAPARIN 40 MG/0.4 ML SQ SCH (16:39)
[2019-08-28] MEDS: IBUPROFEN 200 MG TAB PO PRN (20:40)
--- NOTE | 2019-08-28 22:35 | OP ---
Date of Procedure: 08/28/2019 Surgeon: Jh Horton MD Preoperative Diagnosis: Stage IV lung cancer. Postoperative Diagnosis: Stage IV lung cancer. Procedure: Right internal jugular Port-A-Cath and interpretation of intraoperative fluoroscopy. Estimated Blood Loss: Minimal. Specimens: None. Findings: Normal anatomy. Anesthesia: General. Complications: None. Disposition: Patient tolerated the procedure, was in stable condition and taken to Recovery in good general condition. Procedure In Detail: Patient was brought to the OR and placed in supine position. General anesthesi a was begun. Patient was prepped and draped in the usual sterile fashion. Lidocaine 1% was infiltra ingris locally. An 18-gauge needle was used to access the right IJ vein. Guidewire was passed. Positi on was confirmed with fluoroscopy. A 3 cm transverse incision was made on the right anterior chest. Pocket was created. Tunneling device was used to tunnel the catheter between the 2 wounds. Selding er technique was used. The tip of the catheter, under fluoroscopy, was placed in the SVC, cut to ara ropriate size, attached to the Port-A-Cath device. Port-A-Cath device was attached to the subcutaneo us tissue with 3-0 Vicryl, and then 3-0 chromic was used to approximate the subcutaneous tissue and c lose the skin. The port was flushed with heparin and packed with heparin with good blood flow. Sterile dressing. Patient was awakened and taken to Recovery in good general condition, and a chest x-ray has been ordered. /MODL Voice ID: [id number] Report ID: [id number]
[2019-08-29] MEDS: NA CHLORIDE 0.9% 1,000 ML IV SCH (06:33)
[2019-08-29 06:43] LABS: Absolute Lymphocytes (CBC) 1.7 K/uL (0.7-4.9); Basophils % 0.3 % (0-1.3); Hematocrit 25.5 % (39.6-49.0); MPV 6.6 fL (7.6-11.3); RBC Red Blood Cell Count 3.68 M/uL (4.33-5.43)
[2019-08-29 06:59] LABS: BUN Blood Urea Nitrogen 12 mg/dL (7-18); Bicarbonate 29 mmol/L (21-32); Glucose Level 93 mg/dL (74-106); Magnesium 2.3 mg/dL (1.8-2.4); Potassium 4.2 mmol/L (3.5-5.1); Sodium Level 141 mmol/L (136-145)
[2019-08-29] MEDS: CEFTRIAXONE/SWI 1gm 1 GM/10 ML SYR IVP SCH (10:03)
[2019-08-29] MEDS: ASPIRIN EC 81 MG TAB PO SCH (10:03)
[2019-08-29] MEDS: ENSURE ENLIVE 237 ML CAN PO SCH (10:04)
[2019-08-29 12:16] VITALS: BP 131/80; TEMP 97.9
--- NOTE | 2019-08-29 12:43 | P.DS ---
Admission Date: 08/26/19 Discharge Date: 08/29/19 Disposition: ROUTINE DISCHARGE Discharge Condition: FAIR Reason for Admission: Referred for leukocytosis - Problems (1) Lung cancer Current Visit: Yes Status: Acute (2) Pneumonitis Current Visit: Yes Status: Acute Brief History of Present Illness: History of Present Illness: Mr. Kimble is 49 y/o old male with a history of thyroid cancer status post chemoradiation in 2017. Patient was following up with his oncologist, was found to have R apical lung mass suggestive of malignancy. He was planned for a placement of port a cath on Saturday08/28/19 however blood work showed leukocytosis. Patient was at his oncologist's office today and referred to the emergency room due to leukocytosis to rule out acute infection. His only complaint is urinary urgency that been ongoing for 2-3 months. He denies any fevers , chills, cough, night sweats, unintentional weight loss or GI symptoms. Patient also has a left hip pain that started 1 week ago. He denies any trauma to the area prior to onset of pain. Allergies No Known Allergies Allergy (Verified 08/25/19 09:21) Hospital Course: The patient was admitted, chest x-ray shows mild perihilar mass effusion. Patient was found to have right pneumonitis secondary to lung cancer. He was started on empirical antibiotics with Rocephin. His leukocytosis started to trend down from 17 kg until 12 K now. He was evaluated by surgery had a right chest wall chemo port placed. Patient is currently stable he will be discharged home today on Omnicef for the next 1 week. He will follow with his oncologist Dr. Zimmer in 1 week. Vital Signs/Physical Exam: Temp Pulse Resp BP Pulse Ox 97.9 F 90 16 131/80 98 08/29/19 12:00 08/29/19 12:00 08/29/19 12:00 08/29/19 12:08/29/19 12:00 General: Alert, In no apparent distress, Oriented x3 HEENT: Atraumatic, Normocephalic, PERRLA Neck: Supple, 2+ carotid pulse no bruit Respiratory: Clear to auscultation bilaterally, Diminished, Other (right chest wall enmanuel-cath insitu , clean dsg over area ) Cardiovascular: Normal pulses, Regular rate/rhythm, Normal S1 S2 Gastrointestinal: Normal bowel sounds, Soft and benign, Non-distended Musculoskeletal: No clubbing, No swelling Neurological: Normal gait, Normal speech, Normal strength at 5/5 x4 extr Laboratory Data at Discharge: WBC 12.0 K/uL (4.3-10.9) H D 08/29/19 06:27 Hgb 8.0 g/dL (13.6-17.9) L 08/29/19 06:27 Hct 25.5 % (39.6-49.0) L 08/29/19 06:27 Plt Count 634 K/uL (152-406) H 08/29/19 06:27 PT 13.6 SECONDS (9.5-12.5) H 08/26/19 11:40 INR 1.16 08/26/19 11:40 Sodium 141 mmol/L (136-145) 08/29/19 06:27 Potassium 4.2 mmol/L (3.5-5.1) 08/29/19 06:27 BUN 12 mg/dL (7-18) 08/29/19 06:27 Creatinine 0.74 mg/dL (0.55-1.3) 08/29/19 06:27 Glucose 93 mg/dL (74-106) 08/29/19 06:27 Magnesium 2.3 mg/dL (1.8-2.4) 08/29/19 06:27 Total Bilirubin 0.1 mg/dL (0.2-1.0) L 08/27/19 10:07 AST 18 U/L (15-37) 08/27/19 10:07 ALT 13 U/L (12-78) 08/27/19 10:07 Alkaline Phosphatase 139 U/L (45-117) H 08/27/19 10:07 Triglycerides 98 mg/dL (<150) 08/27/19 05:10 Cholesterol 135 mg/dL (<200) 08/27/19 05:10 HDL Cholesterol 42 mg/dL (40-60) 08/27/19 05:10 Cholesterol/HDL Ratio 3.21 08/27/19 05:10 Home Medications: Ibuprofen [Advil] 200 mg PO PRN PRN 08/25/19 Cefdinir [Omnicef] 300 mg PO BID #14 capsule 08/29/19 New Medications: Cefdinir [Omnicef] 300 mg PO BID #14 capsule Patient Discharge Instructions: May shower in am. Keep steristrips on at all times Diet: Regular Activity: Ad masoud Followup: Tracie Salazar MD [ACTIVE - CAN ADMIT] - 1 Week Jh Horton MD [ACTIVE - CAN ADMIT] - 1-2 Weeks Time spent managing pt's care (in minutes): 35
--- NOTE | 2019-08-29 17:01 | PN ---
Date of Progress Note: 08/29/2019 Subjective: The patient is awake, alert. No complaints. His white count is down to 12,000. Objective: VITAL SIGNS: Vitals are stable. He is afebrile. His dressing is clean, dry, and intact . Assessment: Leukocytosis, etiology unclear. Status post Port-A-Cath placement for stage IV lung can cer. Recommendations: Patient cleared for discharge. From my perspective, follow up with his oncologist as directed and follow up with me in 2 weeks. Discharge instructions given. /MODL Voice ID: [id number] Report ID: [id number]
== END 2019-08-29 14:17 | disposition home or self-care (01) ==
LOC: ER 10:28 → ERHOLD 14:25 → 2ND 19:55
PROVIDERS: ADMIT Hospitalist; ATTEND Hospitalist
PROC: 02HV33Z Insertion of Infusion Device into Superior Vena Cava, Percutaneous Approach (ICD-10-PCS; 2019-08-28)
PROC: 0JH63XZ Insertion of Tunneled Vascular Access Device into Chest Subcutaneous Tissue and Fascia, Percutaneous Approach (ICD-10-PCS; principal; 2019-08-28 13:30)
DX: J18.9 Pneumonia, unspecified organism (principal); C34.90 Malignant neoplasm of unspecified part of unspecified bronchus or lung; D64.9 Anemia, unspecified; F17.210 Nicotine dependence, cigarettes, uncomplicated; Z85.850 Personal history of malignant neoplasm of thyroid
CPT/HCPCS: 96365; 96361; 93005; 87040 ×2; 85025 ×4; 80048 ×3; 36415 ×3; 86900; 83735 ×3; 86850; 85610; 80061; 86901; 80076; 83605; 81003; 84484; 83540; 80053; 84145 ×2; 83880; 84466; 71045 ×2; 76000; 72170; 73502; 73552; 99285; 96366; 36558; J2704; J1200; J1644 ×2; J1650 ×3; J2250; J3010; J2543; J0696 ×3; G0378 ×6; J7030 ×8; J2405; J0690; C1788